=== PATIENT | female | born 1935 | race Caucasian/White ===

== ENCOUNTER → 2021-06-13 | Outpatient (CLI) | payer OTHER | LOC: SJCVC 09:38 | PROVIDERS: ATTEND Internal Medicine | DX: R94.31 Abnormal electrocardiogram [ECG] [EKG] (principal); I45.19 Other right bundle-branch block; R00.2 Palpitations; I10 Essential (primary) hypertension; I38 Endocarditis, valve unspecified; R07.9 Chest pain, unspecified; E78.5 Hyperlipidemia, unspecified; F41.9 Anxiety disorder, unspecified; Z79.82 Long term (current) use of aspirin; Z82.49 Family history of ischemic heart disease and other diseases of the circulatory system; Z87.891 Personal history of nicotine dependence; Z88.8 Allergy status to other drugs, medicaments and biological substances; Z79.899 Other long term (current) drug therapy ==